=== PATIENT | female | born 1965 | race Two or more races ===

== ENCOUNTER 2024-03-13 12:10 | Emergency (ER) | payer SELFPAY ==
[~2024-03-13] VITALS: Ht 165.1 cm; Wt 65.0 kg
[2024-03-13 12:18] VITALS: TEMP 97
[2024-03-13] MEDS: ONDANSETRON HCL 4MG/2ML INJ IV STA (12:36)
[2024-03-13] MEDS: MORPHINE SULFATE 4 MG/ML INJ (FOR IV/IM USE) IV STA (12:36)
[2024-03-13 13:09] LABS: HEMATOCRIT. 39.8 % (36.0-48.0); HEMOGLOBIN. 13.1 g/dL (12.0-16.0); MEAN CORPUSCULAR HEMOGLOBIN 31.2 pg (28.0-32.0); MEAN CORPUSCULAR HGB CONC 32.8 g/dL (31.0-37.0); MEAN CORPUSCULAR VOLUME 95.2 fL (81.0-99.0); MEAN PLATELET VOLUME 7.5 fl (7.4-10.4); PLATELET 258 x1000/uL (130-400); RED BLOOD CELL COUNT 4.19 mill/uL (4.2-5.4); RED CELL DISTRIBUTION WIDTH 13.5 % (11.6-14.6); WHITE BLOOD COUNT 9.1 x1000/uL (4.5-11.0)
[2024-03-13 13:17] LABS: CHLORIDE 109 mEq/L (98-107); POTASSIUM 3.8 mEq/L (3.5-5.1); SODIUM 141 mEq/L (136-145)
[2024-03-13 13:18] LABS: CARBON DIOXIDE 25 mEq/L (21-32)
[2024-03-13 13:19] LABS: CALCIUM 9.3 mg/dL (8.7-10.4)
[2024-03-13 13:22] LABS: PARTIAL THROMBOPLASTIN TIME 21.7 sec (23.4-31.0); PROTHROMBIN TIME 10.9 sec (9.6-11.0)
[2024-03-13 13:23] LABS: CREATININE 0.7 mg/dL (0.6-1.0); GLUCOSE 147 mg/dL (70-105)
[2024-03-13 13:24] LABS: UREA NITROGEN BLOOD 14 mg/dL (9-23)
[2024-03-13 13:25] LABS: ALANINE AMINOTRANSFERASE 192 IU/L (10-49); ALBUMIN 3.9 g/dL (3.2-4.8); ASPARTATE AMINOTRANSFERASE 469 IU/L (<34)
[2024-03-13 13:26] LABS: BILIRUBIN DIRECT 0.4 mg/dL (<=3.0); PROTEIN TOTAL 6.7 g/dL (6.0-8.3)
[2024-03-13 13:27] LABS: TROPONIN I HIGH SENSITIVITY < 4 ng/L (3.0-34)
[2024-03-13 13:30] LABS: DIFFERENTIAL COMMENT 1
[2024-03-13] MEDS: SODIUM CHLORIDE 0.9% 1,000 ML IV ONE (13:39)
[2024-03-13 14:28] LABS: PLATELET ESTIMATE NORMAL
[2024-03-13] MEDS ORDERED: FAMO-135 PO (16:14)
[2024-03-13 18:25] VITALS: BP 124/78; PULSE 66; RESP 16; O2SAT 99
== END 2024-03-13 19:45 | disposition home or self-care (01) ==
LOC: ER 12:50
DX: R10.33 Periumbilical pain (principal)
CPT/HCPCS: 80076; 80048; 83690; 85025; 85610; 85730; 84484; 36415; 71045; 74176; 76705; 93005; 96374; 96375; 99285; J2405; J2270; J7030; Z7610 ×2